=== PATIENT | male | born 1955 | race Caucasian/White ===

== ENCOUNTER 2016-09-06 16:25 | Observation (INO) | payer OTHER ==
[~2016-09-06] VITALS: Ht 167.6 cm; Wt 74.8 kg
[2016-09-06] MEDS ORDERED: IPRATROPIUM 0.5MG/ALBUTEROL 2.5MG INH SOL UD 3ML (DUONEB)(J7620) As Ordered ONE (16:53)
[2016-09-06] MEDS ORDERED: methylPREDNISolone INJ 125 MG/2 ML VIAL (J2930) As Ordered ONE (17:36)
[2016-09-06 17:46] LABS: BASO # 0.1 K/mm3 (0.0-0.2); BASO % 0.7 % (0.0-1.0); EOS # 0.4 K/mm3 (0.0-0.50); LARGE UNSTAINED CELL # 0.2 K/mm3 (0.0-0.4); LARGE UNSTAINED CELL % 1.7 % (0.0-4.0); LYMPH # 1.1 K/mm3 (1.5-4.5); LYMPH % 11.1 % (24.0-44.0); MEAN CORPUSCULAR HEMOGLOBIN 31.5 pg (27.0-33.0); MEAN CORPUSCULAR HGB CONC 33.4 g/dl (32.0-36.5); MEAN CORPUSCULAR VOLUME 94.2 fl (80.0-96.0); MONO # 0.5 K/mm3 (0.0-0.8); NEUTROPHILS # 6.7 K/mm3 (1.8-7.7); NEUTROPHILS % 75.5 % (36.0-66.0); PLATELET COUNT, AUTOMATED 231 k/mm3 (150-450); RED CELL DISTRIBUTION WIDTH 12.9 % (11.5-14.5); WHITE BLOOD COUNT 8.8 K/mm3 (4.0-10.0)
[2016-09-06 18:08] LABS: ANION GAP 10 MEQ/L (8-16); BLOOD UREA NITROGEN 11 MG/DL (7-18); CALCIUM LEVEL 9.7 MG/DL (8.8-10.2); CARBON DIOXIDE LEVEL 31 MEQ/L (21-32); CHLORIDE LEVEL 98 MEQ/L (98-107); CREATININE FOR GFR 0.93 MG/DL (0.70-1.30); GLOMERULAR FILTRATION RATE > 60.0 (>49); GLUCOSE, FASTING 108 MG/DL (80-110); POTASSIUM SERUM 3.2 MEQ/L (3.5-5.1); SODIUM LEVEL 139 MEQ/L (136-145)
--- NOTE | 2016-09-06 18:16 | REP ---
CHEST, PA AND LATERAL: 09/06/2016. Comparison: 05/27/2016, 03/20/2014. Clinical history: Cough with bronchitis symptoms and sinusitis for 2 weeks. Findings: The lung chávez are well inflated without pleural effusion, acute infiltrate, atelectasis or mass. Heart, mediastinal and hilar contours are normal. There are a few cuffed bronchi in the perihilar regions which may reflect reactive airway disease or bronchitis. No effusion or consolidation. The airway and aorta unremarkable. Bones without acute compression deformity of focal lesion. Impression: 1. Minor perihilar changes of bronchitis or reactive airway disease without dense consolidation or effusion. No cardiomegaly or edema. Signed by Carlitos Jensen MD 09/06/2016 08:26 P
[2016-09-06] MEDS ORDERED: AZITHROMYCIN 250 MG TAB As Ordered ONE (19:19)
[2016-09-06] MEDS ORDERED: ALBUTEROL SULFATE 2.5 MG/0.5 ML INH NEB SOLN As Ordered ONE (19:30)
[2016-09-06] MEDS ORDERED: ACETAMINOPHEN TAB 650MG DOSE (2X325MG) PO PRN (20:30)
[2016-09-06] MEDS ORDERED: ONDANSETRON 4MG/2ML VIAL (J2405) IV PRN (20:30)
[2016-09-06] MEDS ORDERED: IPRATROPIUM 0.5MG/ALBUTEROL 2.5MG INH SOL UD 3ML (DUONEB)(J7620) NEB PRN (20:30)
[2016-09-06] MEDS ORDERED: POTASSIUM CHLORIDE 10 MEQ SR TABLET PO ONE (20:30)
[2016-09-06] MEDS ORDERED: VITA10006 PO (20:44)
[2016-09-06] MEDS ORDERED: PROA1AER INH (20:44)
[2016-09-06] MEDS ORDERED: LISI10TA4 PO (20:44)
[2016-09-06] MEDS ORDERED: ASPI1TAB PO (20:44)
[2016-09-06] MEDS ORDERED: SIMV40TA2 PO (20:44)
[2016-09-06] MEDS ORDERED: VITMTA PO (20:44)
[2016-09-06] MEDS ORDERED: HYDR25TAB PO (20:44)
[2016-09-06] MEDS ORDERED: MONTELUKAST 10 MG TAB PO SCH (21:00)
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
[2016-09-06 22:00] VITALS: BP 138/78
[2016-09-06] MEDS: IPRATROPIUM 0.5MG/ALBUTEROL 2.5MG INH SOL UD 3ML (DUONEB)(J7620) NEB SCH (23:37)
[2016-09-06] MEDS: methylPREDNISolone INJ 125 MG/2 ML VIAL (J2930) IV SCH (23:42)
[2016-09-07] MEDS: IPRATROPIUM 0.5MG/ALBUTEROL 2.5MG INH SOL UD 3ML (DUONEB)(J7620) NEB SCH ×2 (04:00→08:11)
[2016-09-07 06:00] VITALS: BP 129/76
[2016-09-07 06:18] LABS: BASO % 0.1 % (0.0-1.0); EOS % 0.6 % (0.0-3.0); LARGE UNSTAINED CELL % 0.2 % (0.0-4.0); LYMPH # 0.4 K/mm3 (1.5-4.5); LYMPH % 5.3 % (24.0-44.0); MEAN CORPUSCULAR HEMOGLOBIN 31.2 pg (27.0-33.0); MEAN CORPUSCULAR HGB CONC 33.9 g/dl (32.0-36.5); MEAN CORPUSCULAR VOLUME 92.2 fl (80.0-96.0); MONO # 0.1 K/mm3 (0.0-0.8); MONO % 1.6 % (0.0-5.0); NEUTROPHILS % 92.2 % (36.0-66.0); PLATELET COUNT, AUTOMATED 191 k/mm3 (150-450); RED CELL DISTRIBUTION WIDTH 12.8 % (11.5-14.5); WHITE BLOOD COUNT 7.5 K/mm3 (4.0-10.0)
[2016-09-07 06:34] LABS: ANION GAP 11 MEQ/L (8-16); BLOOD UREA NITROGEN 13 MG/DL (7-18); CALCIUM LEVEL 8.8 MG/DL (8.8-10.2); CARBON DIOXIDE LEVEL 26 MEQ/L (21-32); CHLORIDE LEVEL 102 MEQ/L (98-107); CHOLESTEROL LEVEL 159 MG/DL (<200); CREATININE FOR GFR 0.86 MG/DL (0.70-1.30); GLOMERULAR FILTRATION RATE > 60.0 (>49); GLUCOSE, FASTING 177 MG/DL (80-110); MAGNESIUM LEVEL 2.4 MG/DL (1.8-2.4); POTASSIUM SERUM 3.5 MEQ/L (3.5-5.1); SODIUM LEVEL 139 MEQ/L (136-145); TRIGLYCERIDES LEVEL 47 MG/DL (<150)
[2016-09-07] MEDS ORDERED: BUDE180INH INH ×2 (08:52→08:53)
[2016-09-07] MEDS ORDERED: PRED10PA PO (08:52)
[2016-09-07] MEDS ORDERED: BUDESONIDE 180MCG INHALER (PULMICORT FLEXHALER) INH SCH (09:00)
[2016-09-07] MEDS ORDERED: ASCORBIC ACID 500 MG TAB PO SCH (09:00)
[2016-09-07] MEDS ORDERED: LISINOPRIL 10 MG TAB PO SCH (09:00)
[2016-09-07] MEDS ORDERED: MULTIVITAMINS/MINERALS THERAP 1 TAB PO SCH (09:00)
[2016-09-07] MEDS ORDERED: hydroCHLOROthiazide 25 MG TAB PO SCH (09:00)
[2016-09-07] MEDS ORDERED: ASPIRIN 81 MG ENTERIC TAB PO SCH (09:00)
[2016-09-07] MEDS ORDERED: ENOXAPARIN 40 MG/0.4 ML SYRINGE (J1650) SC SCH (09:00)
[2016-09-07] MEDS ORDERED: PANTOPRAZOLE 40MG TAB (PROTONIX) PO SCH (09:00)
[2016-09-07] MEDS: methylPREDNISolone INJ 125 MG/2 ML VIAL (J2930) IV SCH (09:59)
--- NOTE | 2016-09-07 20:18 | DSES ---
DATE OF ADMISSION: 09/06/2016 DATE OF DISCHARGE: 09/07/2016 DISCHARGE DIAGNOSIS: Acute asthma exacerbation. SECONDARY DIAGNOSES: Dyslipidemia, gastroesophageal reflux disease, hypertension. HOSPITAL COURSE: Patient is a 60-year-old man who has been battling dyspnea and productive cough for the last 2 1/2 weeks without improvement. He had sick contacts at work. He had been sick recently himself and has just been unable to clear his cough and had worsening shortness of breath associated with it which prompted him to present to the emergency room. Pain was found to be significantly hypoxic. He did receive one dose of azithromycin as well as IV Solu-Medrol, Singulair with desonide which did greatly improve his symptoms. Within the next 24 hours his symptoms did almost completely resolve. SUBJECTIVE: This morning the patient tells me he is feeling great. He feels almost back to normal. He denies any chest pain, shortness of breath, fevers, chills, nausea, vomiting or diarrhea. OBJECTIVE: VITAL SIGNS: Temperature 96.6, pulse 80, respiratory rate 20, blood pressure 129/76, Oxygen sat 98% on room air. I do get him up to ambulate greater than 100 feet and he never drops below 92%. GENERAL: He is a pleasant man sitting on the edge of his bed. He does not appear to be in any acute distress. HEENT: Cranial nerves II through XII are grossly intact. He has moist mucous membranes. No elevation of CVP. CARDIOVASCULAR EXAM: S1, S2, regular. RESPIRATORY EXAM: Clear, no wheeze. Good air movement. Mildly prolonged expiratory phase. ABDOMINAL EXAM: Benign. EXTREMITIES: No clubbing, cyanosis or edema. LABORATORY DATA: WBC 7.5, hemoglobin 3.6, hematocrit 40.1, platelet count 19. Chemistry panel: Sodium 139, potassium 3.5, chloride 102, bicarbonate 26, BUN 13, creatinine 0.8. Respiratory PCR panel was negative. Influenza swab was negative. Blood cultures were negative or pending. Chest x-ray did not reveal any acute consolidation. ASSESSMENT AND PLAN: This is a 60-year-old man with acute asthma exacerbation. PROBLEM: 1. Acute asthma excerebration. Patient is improved. He appears to be at his baseline. He is discharged on his home Ventolin. I will also get him a prednisone taper. Follow up with primary care provider within 7 days. I will give him a new prescription for an inhaled corticoid steroid or Flovent. [facility] He is to be off work until follow up with his primary care provider. His diet is as prior to admission. He is to return to the emergency room if his symptoms worsen. 2. Hypertension. Controlled with hydrochlorothiazide and Lisinopril. 3. Dyslipidemia. Controlled with Simvastatin. MEDICATIONS AT THE TIME OF DISCHARGE: -Flovent two puffs inhaled twice a day -Prednisone 10 mg tablets four for 4 days, three for 4 days, two for 4 days, 1 for 4 days then stop -Pro Air HFA inhaled four times a day as needed for shortness of breath -Vitamin C 1 gram daily as per patient -aspirin 81 mg daily -hydrochlorothiazide 25 mg daily -Lisinopril 10 mg daily -multivitamin one tablet daily -Simvastatin 40 mg at bedtime Greater than 40 minutes spent organizing disposition.
[2016-09-07] MEDS ORDERED: SIMVASTATIN 40 MG TAB PO SCH (21:00)
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
== END 2016-09-07 11:02 | disposition home or self-care (01) ==
LOC: M ED 16:25 → M ED INP 20:30 → M MSPAV 21:45
PROVIDERS: ADMIT General Practice; ATTEND Internal Medicine
DX: J45.901 Unspecified asthma with (acute) exacerbation (principal); E78.5 Hyperlipidemia, unspecified; K21.9 Gastro-esophageal reflux disease without esophagitis; I10 Essential (primary) hypertension; Z79.82 Long term (current) use of aspirin; Z79.51 Long term (current) use of inhaled steroids; Z79.899 Other long term (current) drug therapy; Z87.891 Personal history of nicotine dependence
CPT/HCPCS: 36415; 71020; 80048; 80061; 83735; 85025; 87040; 87486; 87581; 87633; 87798; 87804; 94640; 96374; 96376; 99285; J2930

== ENCOUNTER 2018-01-10 02:52 | Emergency (ER) | payer OTHER ==
[2018-01-10] MEDS: methylPREDNISolone INJ 125 MG/2 ML VIAL (J2930) IV (03:39)
[2018-01-10] MEDS: IPRATROPIUM 0.5MG/ALBUTEROL 2.5MG INH SOL UD 3ML (DUONEB)(J7620) NEB ×3 (03:50→03:51)
[2018-01-10 04:24] LABS: ABG BASE EXCESS 2.3 (-2.0-2.0); ABG HCO3 26.2 MEQ/L (22.0-26.0); ABG O2 SATURATION 93.2 % (95.0-99.0); ABG PARTIAL PRESSURE CO2 38.3 mmHg (35.0-45.0); ABG PARTIAL PRESSURE O2 63.9 mmHg (75.0-100.0); ABG STANDARD HCO3 26.4 MEQ/L (22.0-26.0); ABG TOTAL CO2 27.4 MEQ/L (23.0-31.0); ABG pH (ARTERIAL) 7.453 UNITS (7.350-7.450); ANION GAP 10 MEQ/L (8-16); BLOOD UREA NITROGEN 17 MG/DL (7-18); CALCIUM LEVEL 8.9 MG/DL (8.8-10.2); CARBON DIOXIDE LEVEL 29 MEQ/L (21-32); CHLORIDE LEVEL 105 MEQ/L (98-107); GLOMERULAR FILTRATION RATE > 60.0 (>49); GLUCOSE, FASTING 111 MG/DL (70-100); POTASSIUM SERUM 3.5 MEQ/L (3.5-5.1); SODIUM LEVEL 144 MEQ/L (136-145)
[2018-01-10 04:41] LABS: BASO # 0.1 10^3/uL (0.0-0.2); BASO % 1.2 % (0.0-1.0); EOS # 0.9 10^3/uL (0.0-0.50); EOS % 13.5 % (0.0-3.0); HEMATOCRIT 42.4 % (42.0-52.0); HEMOGLOBIN 14.7 g/dl (13.5-17.5); IMMATURE GRANULOCYTE % 0.3 % (0-3.0); LYMPH # 0.9 10^3/uL (1.5-4.5); LYMPH % 13.5 % (24.0-44.0); MEAN CORPUSCULAR HEMOGLOBIN 30.8 pg (27.0-33.0); MEAN CORPUSCULAR HGB CONC 34.7 g/dl (32.0-36.5); MEAN CORPUSCULAR VOLUME 88.7 fl (80.0-96.0); MONO # 0.6 10^3/uL (0.0-0.8); MONO % 9.2 % (0.0-5.0); NEUTROPHILS # 4.1 10^3/uL (1.8-7.7); NEUTROPHILS % 62.3 % (36.0-66.0); PLATELET COUNT, AUTOMATED 188 10^3/uL (150-450); RED BLOOD COUNT 4.78 10^6/uL (4.30-6.10); RED CELL DISTRIBUTION WIDTH 12.5 % (11.5-14.5); WHITE BLOOD COUNT 6.5 10^3/uL (4.0-10.0)
[2018-01-10] MEDS: AZITHROMYCIN 250 MG TAB PO (06:00)
[2018-01-10] MEDS: ALBUTEROL 90 MCG/ACT 8GM HFA INHALER INH (06:00)
== END 2018-01-10 06:12 | disposition home or self-care (01) ==
LOC: M ED 02:52
DX: J42 Unspecified chronic bronchitis (principal); J44.9 Chronic obstructive pulmonary disease, unspecified; J30.81 Allergic rhinitis due to animal (cat) (dog) hair and dander; Z87.891 Personal history of nicotine dependence; Z79.82 Long term (current) use of aspirin; Z79.899 Other long term (current) drug therapy
CPT/HCPCS: J2930

== ENCOUNTER 2019-06-17 16:41 | Emergency (ER) | payer MEDICARE, OTHER ==
[~2019-06-17] VITALS: Ht 167.6 cm; Wt 75.0 kg
[~2019-06-17 16:41] MED LIST: ASPI81TA26 PO; AZIT-12 PO; BUDE180INH INH; DICL75TA PO; FLUT1LOT EX; HYDR25TAB PO; LISI10TA4 PO; PRED10PA PO; PRED20TA PO; PRIL20CA9 PO; PROAAER10 INH; SIMV40TA20 PO; TRAM50TA2 PO; VITA10006 PO; VITMTA PO
[2019-06-17 17:27] LABS: BASO % 0.6 % (0.0-1.0); EOS # 0.2 10^3/uL (0.0-0.5); EOS % 4.4 % (0.0-3.0); HEMATOCRIT 42.4 % (42.0-52.0); HEMOGLOBIN 14.2 g/dl (13.5-17.5); LYMPH # 0.8 10^3/uL (1.5-5.0); MEAN CORPUSCULAR HGB CONC 33.5 g/dl (32.0-36.5); MEAN CORPUSCULAR VOLUME 92.6 fl (80.0-96.0); MONO # 0.6 10^3/uL (0.0-0.8); NEUTROPHILS # 3.5 10^3/uL (1.5-8.5); NEUTROPHILS % 66.8 % (36.0-66.0); PLATELET COUNT, AUTOMATED 190 10^3/uL (150-450); RED BLOOD COUNT 4.58 10^6/uL (4.30-6.10); WHITE BLOOD COUNT 5.3 10^3/uL (4.0-10.0)
[2019-06-17 17:50] LABS: ALBUMIN 4.2 GM/DL (3.2-5.2); ALT/SGPT 82 U/L (12-78); BILIRUBIN,DIRECT 0.2 MG/DL (0.0-0.2); BILIRUBIN,TOTAL 0.4 MG/DL (0.2-1.0); BLOOD UREA NITROGEN 18 MG/DL (7-18); CALCIUM LEVEL 8.8 MG/DL (8.8-10.2); CARBON DIOXIDE LEVEL 32 MEQ/L (21-32); CHLORIDE LEVEL 103 MEQ/L (98-107); CREATININE FOR GFR 0.92 MG/DL (0.70-1.30); GLOMERULAR FILTRATION RATE > 60.0 (>49); GLUCOSE, FASTING 84 MG/DL (70-100); LIPASE 176 U/L (73-393); SODIUM LEVEL 141 MEQ/L (136-145); TOTAL PROTEIN 7.4 GM/DL (6.4-8.2)
[2019-06-17] MEDS ORDERED: LISI10TA4 PO (18:57)
[2019-06-17] MEDS ORDERED: DICL50TA2 PO (19:00)
[2019-06-17] MEDS ORDERED: ATOR80TA59 PO (19:00)
[2019-06-17] MEDS ORDERED: SING10TA32 PO (19:01)
[2019-06-17] MEDS ORDERED: ARTIDRO2 OS (19:02)
[2019-06-17] MEDS ORDERED: TIMO0.5S29 OD (19:03)
[2019-06-17] MEDS ORDERED: KETOROLAC 30 MG/ML VIAL (J1885) IV ONE (19:45)
--- NOTE | 2019-06-17 20:54 | REPVR ---
PROCEDURE INFORMATION: Exam: US Scrotum Exam date and time: 06/17/2019 8:39 PM Age: 63 years old Clinical history: Groin pain; Additional info: Left testicular/groin pain x 3 days TECHNIQUE: Imaging protocol: Real-time ultrasound of the scrotum and contents with color Doppler and image documentation. COMPARISON: No relevant prior studies available. FINDINGS: Right testicle: Right testis measures 3.7 x 2.6 x 3 cm. Arterial and venous flow are detected. No focal mass. Left testicle: Left testis measures 4.1 x 2.7 x 2.7 cm. Arterial and venous flow are detected. The no focal mass. Epididymides: There is a 3 mm anechoic cyst in the head of the right epididymis. There is an epididymis appendix. The epididymis is otherwise normal in appearance. The right epididymis is unremarkable. Scrotum: There are bilateral hydroceles. IMPRESSION: 1. Normal appearance of the testes without evidence of testicular torsion. No significant epididymal abnormality is identified. 2. Bilateral hydroceles. Electronically signed by: Willow Soto On 06/17/2019 20:54:25 PM
[2019-06-17] MEDS: GASTROGRAFIN SOLUTION 30ML PO SCH ×2 (21:38→22:08)
[2019-06-17] MEDS ORDERED: ISOVUE-370 76% 100ML VIAL (Q9967) As Ordered ONE (22:55)
--- NOTE | 2019-06-17 23:59 | REPVR ---
PROCEDURE INFORMATION: Exam: CT Abdomen And Pelvis With Contrast Exam date and time: 06/17/2019 11:02 PM Age: 63 years old Clinical history: Abdominal pain; Additional info: Llq/groin pain, radiating to left testicle, neg scrotal US TECHNIQUE: Imaging protocol: Computed tomography of the abdomen and pelvis with intravenous contrast. Radiation optimization: All CT scans at this facility use at least one of these dose optimization techniques: automated exposure control; mA and/or kV adjustment per patient size (includes targeted exams where dose is matched to clinical indication); or iterative reconstruction. Contrast material: ISOVUE 370; Contrast volume: 100 ml; Contrast route: IV; COMPARISON: No relevant prior studies available. FINDINGS: Liver: Normal. No mass. Gallbladder and bile ducts: Normal. No calcified stones. No ductal dilation. Pancreas: Normal. No ductal dilation. Spleen: Normal. No splenomegaly. Adrenals: Normal. No mass. Kidneys and ureters: Normal. No hydronephrosis. Stomach and bowel: Mo fundoplication. Appendix: No evidence of appendicitis. Intraperitoneal space: Unremarkable. No free air. No significant fluid collection. Vasculature: Unremarkable. No abdominal aortic aneurysm. Lymph nodes: Unremarkable. No enlarged lymph nodes. Bladder: Unremarkable as visualized. Reproductive: Unremarkable as visualized. Bones/joints: Mild/moderate lumbar spondylosis. Soft tissues: Small left inguinal hernia containing fat. IMPRESSION: Small left inguinal hernia containing fat. Electronically signed by: Palomo Menjivar On 06/17/2019 23:58:51 PM
[2019-06-18 00:19] VITALS: BP 167/97
[2019-06-20 00:07] LABS: PSA TOTAL 1.3 ng/mL (0.0-4.0)
== END 2019-06-18 00:23 | disposition home or self-care (01) ==
LOC: M ED 16:41
DX: K40.90 Unilateral inguinal hernia, without obstruction or gangrene, not specified as recurrent (principal); N43.3 Hydrocele, unspecified; N50.812 Left testicular pain; Z79.82 Long term (current) use of aspirin; Z79.899 Other long term (current) drug therapy
CPT/HCPCS: 36415; 74177; 76870; 80048; 80076; 81001; 83690; 84154; 85025; 96374; 99284; J1885; Q9963; Q9967

== ENCOUNTER → 2019-07-17 | Outpatient (CLI) | payer MEDICARE, OTHER ==
[~2019-07-17] MED LIST changes: +ALLERGY SHOT; +ARTIDRO2 OS; +ATOR80TA59 PO; +BRIM2OPD OU; +DICL1GEL3 TOP; +DICL50TA2 PO; +FLUT15.820; +LORA-674 PO; +OMEP-218 PO; +ROSU40TA4 PO; +SING10TA32 PO; +TIMO0.5S29 OD; +VITA500T PO
--- NOTE | 2019-07-17 20:43 | ECGEPIP ---
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
== END ==
LOC: M EKG 11:50
PROVIDERS: ATTEND Surgery
DX: Z01.818 Encounter for other preprocedural examination (principal); R00.1 Bradycardia, unspecified

== ENCOUNTER 2019-07-23 05:52 | Day surgery (SDC) | payer MEDICARE, OTHER ==
[~2019-07-23] VITALS: Ht 167.6 cm; Wt 86.2 kg
[2019-07-23] MEDS ORDERED: LR 1,000 ML IV SCH ×2 (06:00→10:00)
[2019-07-23] MEDS ORDERED: ceFAZolin SOD 2 GM in IV 1 EA IV SCH (06:00)
[2019-07-23] MEDS ORDERED: BUPIVACAINE HCL 0.25% 10 ML VIAL As Ordered ONE (07:09)
[2019-07-23] MEDS ORDERED: BUPIVACAINE HCL 0.25% 30 ML VIAL As Ordered ONE ×2 (07:10→07:55)
[2019-07-23] MEDS ORDERED: LIDOCAINE 1% SDV INJ 30 ML VIAL As Ordered ONE ×2 (07:10→07:55)
[2019-07-23] MEDS ORDERED: BUPIVACAINE LIPOSOME/PF 1.3% 20ML VIAL (13.3MG/ML)(EXPAREL)(C9290 PER1MG) As Ordered ONE (07:10)
[2019-07-23] MEDS ORDERED: PROPOFOL 200 MG/20 ML VIAL As Ordered ONE (07:14)
[2019-07-23] MEDS ORDERED: dexameTHASONE 4 MG/ML 1ML VIAL (J1100) As Ordered ONE (07:14)
[2019-07-23] MEDS ORDERED: ACETAMINOPHEN 1000MG 100ML IV BTL (OFIRMEV) (J0131 PER 10MG) As Ordered ONE (07:14)
[2019-07-23] MEDS ORDERED: MIDAZOLAM INJ 2 MG/2 ML VIAL (J2250) As Ordered ONE (07:14)
[2019-07-23] MEDS ORDERED: ONDANSETRON 4MG/2ML VIAL (J2405) As Ordered ONE (07:14)
[2019-07-23] MEDS ORDERED: ROCURONIUM BROMIDE 50 MG/5 ML VIAL As Ordered ONE (07:14)
[2019-07-23] MEDS ORDERED: LIDOCAINE 2% INJ 100 MG/5 ML SDV (FOR ANES.) As Ordered ONE (07:14)
[2019-07-23] MEDS ORDERED: KETOROLAC 60 MG/2 ML VIAL (J1885) As Ordered ONE (07:14)
[2019-07-23] MEDS ORDERED: SUGAMMADEX SODIUM 500 MG/5 ML VIAL (BRIDION) As Ordered ONE (07:14)
[2019-07-23] MEDS ORDERED: fentaNYL 100 MCG/2 ML INJECTION (J3010) As Ordered ONE (07:16)
[2019-07-23] MEDS ORDERED: MORPHINE 2 MG/ML 1ML VIAL (J2270) IV PRN (10:00)
[2019-07-23] MEDS ORDERED: ONDANSETRON 4MG/2ML VIAL (J2405) IV PRN ×2 (10:00→11:00)
[2019-07-23] MEDS ORDERED: fentaNYL 100 MCG/2 ML INJECTION (J3010) IV PRN (10:00)
[2019-07-23] MEDS ORDERED: oxyCODONE 5MG TAB As Ordered ONE (10:06)
[2019-07-23] MEDS ORDERED: oxyCODONE 5MG TAB PO ONE (10:30)
[2019-07-23] MEDS ORDERED: PERCOCET 5MG/325MG TAB PO PRN (11:00)
[2019-07-23 11:50] VITALS: BP 125/73
[2019-07-23] MEDS ORDERED: KETOROLAC 30 MG/ML VIAL (J1885) IV PRN (15:00)
--- NOTE | 2019-07-25 11:20 | ROOPDOC ---
[facility] Report Of Operation Report of Operation DATE OF PROCEDURE: 07/23/19 PREPROCEDURE DIAGNOSES: left inguinal hernia. POSTPROCEDURE DIAGNOSES: small indirect left inguinal hernia, moderate sized cord lipoma. PROCEDURE: Robotic-assisted laparoscopic left inguinal hernia repair (transabdominal preperitoneal repair ARTHUR) 15 x 10 cm Procrit mesh was placed. SURGEON: Javier Buck MD LIFE SCIENCE RESEARCH ASSISTANT: ANESTHESIA: General Anesthesia. ESTIMATED BLOOD LOSS: Approximately 10 mL. COMPLICATIONS: none. PROCEDURE NOTE: Patient is complaining of left groin pain and clinically has a small reducible inguinal hernia that ultrasound is noted to be fat containing. Intraoperatively he has a small peritoneal defect leading to the internal ring with only minimal invagination of the peritoneum/hernia sac. He had a moderate sized roughly about 4 cm bulky cord lipoma inside the inguinal canal that was reduced and partially excised. DESCRIPTION OF PROCEDURE: Patient received 2 g of Ancef IV preoperatively for wound prophylaxis. He was allowed to urinate prior to bringing him into the operating room and no Lund catheter is placed. Patient was brought to the operating room, placed supine on the operating table. Compression boots placed in both lower extremities for DVT prophylaxis. After adequate general anesthesia started His abdomen and groin/pelvic area then prepped and draped in the usual sterile fashion. We paused for a surgical timeout using both pre-incision safety checklist to verify correct patient, procedure site and additional clinical information prior to beginning the procedure Entry to the abdomen done through a small incision about 2 cm above the umbilicus. A Veress needle is inserted on a controlled fashion. CO2 insufflation started to pressure 15 mmHg. Using the same incision an 8 mm robotic optical trocar was then placed under direct vision of laparoscope. The insertion site was inspected for injury and none was found. The insertion point is noted to be surrounded by a omental adhesions with the omentum coming to the anterior abdominal wall extending to the right lower lateral abdominal wall probably from his previous appendectomy/appendicitis. There were no obvious bleeding or bowel injury. I placed a 5 mm port at the left upper quadrant area to visualize the supraumbilical insertion site. An 8 mm robotic trocar is placed on the left sided abdominal wall along the same line as the camera trocar. Using the 2 left trochars and the omental adhesions along the anterior abdominal wall was sharply divided with laparoscopic christiano connected to a monopolar cautery and the omentum and bowels underneath referring examined to make sure there is no injury. Once satisfied a third 8 mm robotic port was placed at the right lateral abdominal wall. Patient was then positioned on a slight Trendelenburg position with the symptomatic (left) side tilted upwards for adequate view of the hernia defect. I note a small peritoneal opening along the left internal ring. No obvious hernias noted at the right side. The da Farhana robot tower was then positioned and the trochars docked onto the robot. I then unscrubbed and took control of the camera and the laparoscopic instruments at the surgeon's console. A forced bipolar forceps with bipolar cautery on my left arm and A luis-cut laparoscopic scissor with unipolar cautery in my right arm was used. Operative Findings: Small peritoneal defect at the left internal ring is noted. No defects noted on the right side. The peritoneum was opened up about 6-7 cm above the internal ring starting at the medial umbilical ligament going i laterally towards the level of the anterior superior iliac spine. Dissection was maintained along the preperitoneal plane. The space of Retzius was bluntly exposed pubic tubercle and this was dissected medially to the symphysis pubis. The dissection was continued inferiorly 2 cm inferior to the pubic tubercle. No direct hernia defect is noted. There is no hernia noted at the femoral space. Dissection was then continued laterally bringing down the small tongue of peritoneum invaginating to the internal ring and the space of Bogros laterally then developed to the level of the anterior superior iliac spine to create adequate space for a large mesh overlap. The inguinal canal was then examined and a moderate size bulky well- formed cord lipoma was pulled out in its entirety. As it was bulky I divided much of the bulk of the cord lipoma to be retrieved later. The dissection space was inspected for adequate hemostasis as well as for adequacy of this mesh placement and once satisfied I obtained a 15 x 10 Progrip mesh. This was folded 4 times and introduced into the abdomen by my certified anesthesiologist assistant. This was unfolded centered to the internal ring. The medial edge of the mesh reaching to the level of the symphysis pubis and the inferior edge of the mesh reaching below the pubic tubercle covering both the direct space and femoral space. The upper peritoneal flap was further developed to accommodate the mesh to lay flat on the abdominal wall. Once the mesh is fully infolded, the peritoneal flap was tested by lifting this up and I was satisfied that this was not folding the mesh upwards. I then used a 20V LOC suture to close the peritoneal flap starting laterally going medially. The peritoneal flap was inspected for holes and none was found. The cord lipoma that was excised was retrieved in pieces by my certified anesthesiologist assistant. I then surveyed the abdomen and pelvis for any signs of injury. Once satisfied I scrubbed back in. The instruments were removed. The abdomen was deflated. All ports were removed. The skin incisions were closed with 4-0 Monocryl in subcuticular fashion. The incisions were covered with Dermabond. The port sites were again infiltrated with local anesthesia. An ilioinguinal nerve block was also performed. Patient was promptly awakened, extubated and brought to the recovery room stable Count of sponges and instruments were verified correct. JAVIER BUCK MD Jul 25, 2019 11:20
== END 2019-07-23 12:05 | disposition home or self-care (01) ==
LOC: M SDC 05:52
PROVIDERS: ATTEND Surgery
DX: K40.90 Unilateral inguinal hernia, without obstruction or gangrene, not specified as recurrent (principal); D17.6 Benign lipomatous neoplasm of spermatic cord; I10 Essential (primary) hypertension; E78.49 Other hyperlipidemia; K21.9 Gastro-esophageal reflux disease without esophagitis; Z87.891 Personal history of nicotine dependence; J44.9 Chronic obstructive pulmonary disease, unspecified; Z79.82 Long term (current) use of aspirin; Z79.899 Other long term (current) drug therapy
CPT/HCPCS: 49650; 88304; C1781; J0131; J0690; J1100; J1885; J2250; J2405; J3010

== ENCOUNTER 2020-04-07 02:28 | Emergency (ER) | payer MEDICARE, OTHER ==
[~2020-04-07] VITALS: Ht 167.6 cm; Wt 84.7 kg
[~2020-04-07 02:28] MED LIST changes: -ARTIDRO2 OS; +POLYOPD OS; +VITA-243 PO; -VITA500T PO
[2020-04-07] MEDS ORDERED: EPIN0.3I11 (02:44)
[2020-04-07] MEDS ORDERED: TOBROPO (02:44)
[2020-04-07] MEDS ORDERED: PROAAER10 (02:44)
[2020-04-07] MEDS ORDERED: LISI-538 (02:44)
--- NOTE | 2020-04-07 03:53 | REPVR ---
PROCEDURE INFORMATION: Exam: XR Right Shoulder Exam date and time: 04/07/2020 3:29 AM Age: 64 years old Clinical indication: Other: Non traumatic; Additional info: Nontraumatic pain TECHNIQUE: Imaging protocol: XR Right shoulder. Views: 2 or more views. Transscapular view was also included. COMPARISON: No relevant prior studies available. FINDINGS: Bones/joints: No acute fracture. No dislocation. Mild widening of the acromioclavicular joint measuring 12 mm. There is no superior or inferior displacement of the distal clavicle. Soft tissues: So the ft tissues: Calcification over the greater tuberosity of the right humerus consistent with calcific tendinitis. IMPRESSION: 1. No acute fracture. 2. Mild widening of the acromioclavicular joint. Possible grade 2 AC joint injury. Electronically signed by: Jennifer Harris On 04/07/2020 03:53:12 AM
[2020-04-07] MEDS ORDERED: NORCO 5/325MG TABLET (BULK FOR ED) PO ONE (04:15)
[2020-04-07 04:20] VITALS: BP 132/56
== END 2020-04-07 04:22 | disposition home or self-care (01) ==
LOC: M ED 02:28
DX: S46.911A Strain of unspecified muscle, fascia and tendon at shoulder and upper arm level, right arm, initial encounter (principal); X58.XXXA Exposure to other specified factors, initial encounter; Y92.9 Unspecified place or not applicable; Y99.9 Unspecified external cause status; M65.221 Calcific tendinitis, right upper arm; I10 Essential (primary) hypertension; J45.909 Unspecified asthma, uncomplicated; E78.5 Hyperlipidemia, unspecified; Z79.51 Long term (current) use of inhaled steroids; Z79.899 Other long term (current) drug therapy

== ENCOUNTER → 2020-11-23 | Outpatient (CLI) | payer OTHER ==
[~2020-11-23] MED LIST changes: +EPIN0.3I11; +HYDR-3490 PO; -HYDR25TAB PO; +LISI10TA22 PO; -LISI10TA4 PO; +LISI20TA33; +PROAAER10; +TOBROPO
--- NOTE | 2020-11-25 00:38 | ECWPNPC ---
PATIENT NAME: MARLA RICO : 1955 GENDER: MALE VISIT DATE: 11/23/2020 DISCHARGE DATE: 11/23/20926 VISIT LOCKED DATE TIME: PHYSICIAN: KO MARIA RESOURCE: KO MARIA REASON FOR APPOINTMENT 1. LOW BACK PAIN HISTORY OF PRESENT ILLNESS GENERAL: HPI 65-YEAR-OLD MALE IN FOR INITIAL PAIN CONSULT REGARDING LOW BACK PAIN. PATIENT ADMITS THE PAIN HAS BEEN PRESENT FOR SEVERAL YEARS. HE DENIES INJECTIONS IN THE PAST. HE RATES HIS PAIN CURRENTLY AT A 7 OUT OF 10 AND DESCRIBES IT CONTINUOUS, AND THROBBING.. - -. FALL RISK SCREENING: SCREENING : NO FALLS REPORTED IN THE LAST YEAR. PAIN SCREENING: PATIENT HAS A COMPLAINT OF ACUTE OR CHRONIC PAIN :YES LOCATION OF PAIN:LOW BACK INTENSITY OF PAIN (SCALE OF 1 TO 10):7 WHAT DOES YOUR PAIN FEEL LIKE:CONTINOUS, THROBBING DURATION:CONTINOUS, AWAKENS FROM SLEEP PAIN IS INCREASED BY:ACTIVITIES, PROLONGED STANDING, OTHERS WALKING PAIN IS DECREASED BY:USE OF PAIN MEDICATIONS, SITTING, OTHERS BIOWAVE, PHYSICAL THERAPY NURSING NOTE: - -. PAIN CENTER INTAKE QUESTIONS: DO YOU HAVE A HISTORY OF MRSA? :NO DO YOU TAKE A BLOOD THINNERS? :NO ASPIRIN DO YOU HAVE ANY BLEEDING DISORDERS? :NO ANY NEW NUMBNESS OR WEAKNESS IN YOUR LEGS OR ARMS? :YES INTERMITTENT LEFT LEG WEAKNESS AND NUMBNESS ANY PACEMAKER,DEFIBRILLATOR, OR DORSAL COLUMN STIMULATOR? :NO DO YOU HAVE ANY RASHES OR OPEN SORES? :NO ARE YOU ALLERGIC TO IV DYE? :NO ARE YOU DIABETIC? :YES BORDERLINE -DIET CONTROLLED ANY NEW PROBLEMS WITH YOUR MEDICATIONS? :NO HAVE YOU RECEIVED A VACCINE IN THE PAST 30 DAYS? :NO DO YOU PLAN TO RECEIVE A VACCINE IN THE NEXT 21 DAYS? :NO DO YOU NEED ANY PRESCRIPTION? :NO DO YOU TAKE ANY IMMUNOSUPPRESSIVE MEDICATIONS? :NO IS THERE A CHANCE YOU COULD BE ? :NO ARE YOU BREAST FEEDING? :NO CURRENT MEDICATIONS TAKING ARTIFICIAL TEARS 1.4 % SOLUTION DIRECTED OPHTHALMIC FOUR TIMES DAILY TAKING OXYCODONE-ACETAMINOPHEN 5-325 MG TABLET 1 TABLET NEEDED ORALLY EVERY 6 HRS, NOTES: ONLY USES WHEN THE PAIN IS UNBEARABLE TAKING ROSUVASTATIN CALCIUM 40 MG TABLET 1 TABLET ORALLY ONCE A DAY TAKING MULTIVITAMIN - TABLET 1 TABLET ORALLY TWICE DAILY TAKING LORATADINE 10 MG TABLET 1 TABLET ORALLY ONCE A DAY TAKING FLUTICASONE PROPIONATE HFA 110 MCG/ACT AEROSOL 1 PUFF INHALATION TWICE A DAY TAKING ASCORBIC ACID 500 MG TABLET CHEWABLE 1 TABLET ORALLY TWICE DAILY TAKING VENTOLIN HFA 108 (90 BASE) MCG/ACT AEROSOL SOLUTION 1 PUFF NEEDED INHALATION EVERY 4 HRS TAKING MONTELUKAST SODIUM 10 MG TABLET 1 TABLET ORALLY ONCE A DAY TAKING ASPIR-81 TAKING HYDROCHLOROTHIAZIDE 25 MG TABLET 1 TABLET IN THE MORNING ORALLY ONCE A DAY TAKING LISINOPRIL 20 MG TABLET 1 TABLET ORALLY ONCE A DAY TAKING TRAMADOL HCL 50 MG TABLET 1 TABLET NEEDED ORALLY ONCE A DAY TAKING DICLOFENAC SOD-OCCLUSIVE DRESS _ THERAPY PACK DIRECTED GEL EXTERNALLY DIRECTED MEDICATION LIST REVIEWED AND RECONCILED WITH THE PATIENT PAST MEDICAL HISTORY HTN ALLERGIES ENVIRONMENTAL: CONGESTION - ALLERGY TIMOLOL HEMIHYDRATE: ALLERGY CATS: CONGESTION - ALLERGY SURGICAL HISTORY FRACTURED BILATERAL ARMS(WRISTS, RADIUS'S, ELBOWS) 1968 APPENDECTOMY 1970 WISDOM TEETH REMOVAL 1972 TONSILLECTOMY 1973 RIGHT FOOT RECONSTRUCTION WITH FIVE PINS PLACED 1979 FRACTURED RIGHT WRIST 1989 HEMMORRHOIDS REMOVED 1991 NODULES REMOVED FROM REAR OF HEAD AND UPPER LIP 1991 FRAGMENTS REMOVED OF CUSTIC ORAL LESION 1994 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 1 SON(S) - HEALTHY. MOTHER HAD LYMPHATIC LEUKEMIA AND SISTER HAD BREAST CANCER. SOCIAL HISTORY GENERAL: TOBACCO USE ARE YOU A:FORMER SMOKER HOW LONG HAS IT BEEN SINCE YOU LAST SMOKED?> 10 YEARS LATEX QUESTIONNAIRE LATEX ALLERGY : HAVE YOU EVER DEVELOPED ANY TYPE OF REACTION AFTER HANDLING LATEX PRODUCTS SUCH RUBBER GLOVES, CONDOMS, DIAPHRAGMS, BALLOONS, SOCKS, OR UNDERWEAR?NO LATEX ALLERGY : HAVE YOU EVER DEVELOPED ANY TYPE OF REACTION DURING OR AFTER DENTAL APPOINTMENT, VAGINAL/RECTAL EXAMINATION, SURGICAL PROCEDURE, OR ANY OTHER EXPOSURE?NO LATEX RISK : HAVE YOU EVER HAD ANY DIFFICULTY BREATHING OR HIVES AFTER EATING OR HANDLING ANY FRUITS, OR VEGETABLES; SUCH KIWI, BANANAS, STONE FRUITS, OR CHESTNUTSNO LATEX RISK : DO YOU HAVE A PREVIOUS PERSONAL HISTORY OF MORE THAN NINE SURGERIES, SPINA BIFIDA, OR REPEATED CATHERIZATIONS? YES - PLEASE INDICATE : > 9 SURGERIES LATEX RISK : ARE YOU FREQUENTLY EXPOSED TO LATEX PRODUCTS IN YOUR OCCUPATION?NO DATE ASKED : 11/23/2020 ALCOHOL USE: RARELY. RECREATIONAL DRUG USE DRUG USE?NO LANGUAGE LANGUAGES SPOKEN:SERBIAN EDUCATION LEVEL OF EDUCATION:COLLEGE LEARNING BARRIERS / SPECIAL NEEDS BARRIERS TO LEARNING?NO HEARING IMPAIRED?YES TINNITUS :HEARING AIDES VISION IMPAIRED?YES :CORRECTIVE LENSES COGNITIVELY IMPAIRED?NO READINESS TO LEARN?YES LEARNING PREFERENCES?NO LEARNING CAPABILITIES PRESENT?YES EMOTIONAL BARRIERS?NO SPECIAL DEVICES?YES :CANE, OTHER ORTHOTIC INSERT FOR RIGHT FOOT. 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 CHILLS NO . WEIGHT CHANGE OF UNKNOWN REASONS NO . MUSCULOSKELETAL: ANY UNUSUAL JOINT PAIN OR SWELLING NOT MENTIONED NO . SYSTEMIC LUPUS NO . ANY NEUROMUSCULAR DISORDER NOT MENTIONED NO . LYME DISEASE NO . GASTROENTEROLOGY: ANY NEW CHANGE IN BOWEL CONTROL? NO . HISTORY OF LIVER DISORDER NOT MENTIONED NO . HISTORY OF UNUSUAL ABDOMINAL PAIN OR CRAMPING NOT MENTIONED NO . NO CONSTIPATION. GENITOURINARY: ANY NEW CHANGE IN BLADDER CONTROL? NO . ANY RENAL/KIDNEY CONDITON NOT MENTIONED NO . NEUROLOGY: HISTORY OF TBI NOT MENTIONED NO . OTHER NEW NUMBNESS OR PAIN PATTERNS NOT MENTIONED NO . NEW ONSET DIZZINESS OR NEUROLOGICAL CHANGES NOT MENTIONED NO . HISTORY OF SEVERE HEADACHES NOT MENTIONED NO . HISTORY OF STROKE OR NEUROLOGICAL DISORDER NOT MENTIONED NO . CARDIOLOGY: HEART SURGERY NO . CONGESTIVE HEART FAILURE/FLUID OVERLOAD NOT MENTIONED NO . HISTORY OF CHEST PAIN,IRREGULAR HEART BEAT NOT MENTIONED NO . RESPIRATORY: SHORTNESS OF BREATH ON EXERTION, WHEEZES, UNUSUAL COUGH NOT MENTIONED NO . ENDOCRINOLOGY: ADRENAL GLAND OR THYROID DISORDERS NOT MENTIONED NO . UNUSUAL URINATION, DIZZINESS OR LETHARGY NOT MENTIONED NO . VITAL SIGNS WT 188.6 LBS, HT 66 IN, BMI 30.44 INDEX, BP 163/78 MM HG, HR 68 /MIN, RR 18 /MIN, TEMP 97.3 F, OXYGEN SAT % 94%, SAFE IN ENV? (Y/N) YES, NA INITIALS AW 0830, REVIEWED BY: MARYJANE SANTA MA. EXAMINATION GENERAL EXAMINATION: GENERALNO ACUTE DISTRESS, WELL NOURISHED AND HYDRATED. PSYCHAPPROPRIATE MOOD AND AFFECT . LUNGS:CLEAR TO AUSCULTATION BILATERALLY, NO WHEEZES, RHONCHI, RALES. HEART:NO MURMURS, REGULAR RATE AND RHYTHM. BACK:POINT TENDER ALONG LUMBAR SPINE, SURROUNDING SKIN SHOWS NO ERYTHEMA, ECCHYMOSIS, INCREASED WARMTH, AND/OR SKIN ERUPTIONS NOTED. POSITIVE MODIFIED SLR LEFT SIDE. MUSCULOSKELETAL:NOTABLE WEAKNESS OF THE LEFT LOWER EXTREMITY, RIGHT LOWER EXTREMITY WITHIN NORMAL LIMITS. ASSESSMENTS INTERVERTEBRAL DISC DISORDER WITH RADICULOPATHY OF LUMBOSACRAL REGION - M51.17 (PRIMARY) TREATMENT INTERVERTEBRAL DISC DISORDER WITH RADICULOPATHY OF LUMBOSACRAL REGION SALINE LOCK (ORDERED FOR 12/01/2020) MEDICATION: NORCO TABLET 5MG/325MG ORALLY (HYDROCODONE/ACETAMINOPHEN) (ORDERED FOR 12/01/2020) MEDICATION: VALIUM TAB 5MG ORALLY (DIAZEPAM) (ORDERED FOR 12/01/2020) NOTES: 65-YEAR-OLD MALE IN FOR INITIAL PAIN CONSULT REGARDING LOW BACK PAIN. GIVEN PRESENTING SYMPTOMS AND RESULTS OF PHYSICAL EXAMINATION RECOMMENDED LUMBAR EPIDURAL STEROID INJECTIONS WITH POSTPROCEDURAL FOLLOW-UP. PATIENT HAS EXPRESSED UNDERSTANDING OF AND WAS IN AGREEMENT WITH TREATMENT PLAN. GIVEN TIME TO ASK QUESTIONS AND EXPRESS CONCERNS. CLINICAL NOTES: PREPROCEDURE AND PROCEDURE INFORMATION PRINTED AND PROVIDED TO PATIENT. PATIENT VERBALIZED AN UNDERSTANDING. NAINA SANTA MA. PROCEDURE CODES FA211 ESTABILISHED PATIENT [facility] CHARGE DISPOSITION & COMMUNICATION FOLLOW UP POST PROCEDURE (REASON: LUMBAR EPIDURAL STEROID INJECTION ) ELECTRONICALLY SIGNED BY AVIS ROBBINS ON 11/24/2020 AT 08:26 AM EDT DISCLAIMER : THIS IS A VISIT SUMMARY EXTRACTED FROM THE [facility] CHART. IT IS NOT A COPY OF THE [facility] PROGRESS NOTE. VIOLA
== END ==
LOC: M PAIN 08:30
PROVIDERS: ATTEND Family Medicine
DX: M51.17 Intervertebral disc disorders with radiculopathy, lumbosacral region (principal); J30.81 Allergic rhinitis due to animal (cat) (dog) hair and dander; Z87.891 Personal history of nicotine dependence; Z88.8 Allergy status to other drugs, medicaments and biological substances; Z79.82 Long term (current) use of aspirin; Z79.899 Other long term (current) drug therapy

== ENCOUNTER → 2020-12-10 | Outpatient (CLI) | payer MEDICARE, OTHER | LOC: M LABSMTC 09:44 | PROVIDERS: ATTEND Anesthesiology | DX: Z01.812 Encounter for preprocedural laboratory examination (principal); Z11.52 Encounter for screening for COVID-19 ==

== ENCOUNTER 2020-12-15 12:17 | Day surgery (SDC) | payer OTHER ==
[~2020-12-15] VITALS: Ht 167.6 cm; Wt 81.2 kg
[~2020-12-15 12:17] MED LIST changes: +NS 1,000 ML IV ONE
[2020-12-15] MEDS ORDERED: fentaNYL 100 MCG/2 ML INJECTION (J3010) As Ordered ONE (14:35)
[2020-12-15] MEDS ORDERED: LIDOCAINE 2% 100MG/5ML SDV (FOR ANES.) As Ordered ONE (14:35)
[2020-12-15] MEDS ORDERED: propofoL 200 MG/20 ML VIAL As Ordered ONE (14:35)
--- NOTE | 2020-12-15 15:40 | ROOR ---
Patient Name: Erickson Hreczayossi Procedure Date: 12/15/2020 2:49 PM Date of : 1955 Age: 65 Room: [facility] Gender: Male Note Status: Finalized Procedure: Upper GI endoscopy Indications: Epigastric abdominal pain Providers: Javier Buck MD Referring MD: Cheko Lira MD Requesting Provider: Medicines: Monitored Anesthesia Care Complications: No immediate complications. Procedure: Pre-Anesthesia Assessment: - Prior to the procedure, a History and Physical was performed, and patient medications and allergies were reviewed. The patient is competent. The risks and benefits of the procedure and the sedation options and risks were discussed with the patient. All questions were answered and informed consent was obtained. Patient identification and proposed procedure were verified by the physician, the nurse and the career orientation teacher in the endoscopy suite. Mental Status Examination: alert and oriented. Airway Examination: normal oropharyngeal airway and neck mobility. Respiratory Examination: clear to auscultation. CV Examination: normal. Prophylactic Antibiotics: The patient does not require prophylactic antibiotics. Prior Anticoagulants: The patient has taken no previous anticoagulant or antiplatelet agents except for aspirin. ASA Grade Assessment: III - A patient with severe systemic disease. After reviewing the risks and benefits, the patient was deemed in satisfactory condition to undergo the procedure. The anesthesia plan was to use monitored anesthesia care (MAC). Immediately prior to administration of medications, the patient was re-assessed for adequacy to receive sedatives. The heart rate, respiratory rate, oxygen saturations, blood pressure, adequacy of pulmonary ventilation, and response to care were monitored throughout the procedure. The physical status of the patient was re-assessed after the procedure. The Endoscope was introduced through the mouth, and advanced to the second part of duodenum. The upper GI endoscopy was accomplished without difficulty. The patient tolerated the procedure well. Findings: The Z-line was irregular and was found 37 cm from the incisors. This was biopsied with a cold forceps for evaluation to rule out Diop's Esophagus. Estimated blood loss was minimal. Segmental moderate inflammation characterized by adherent blood, congestion (edema), erosions, erythema and serpentine ulcerations was found in the gastric antrum. Biopsies were taken with a cold forceps for Helicobacter pylori testing. A small submucosal mass with no bleeding was found in the second portion of the duodenum. Biopsies were taken with a cold forceps for histology. suspect either lipoma or small gist Impression: - Z-line irregular, 37 cm from the incisors. Biopsied. - Chronic gastritis. Biopsied. - Likely benign duodenal mass. Biopsied. Recommendation: - Discharge patient to home (ambulatory). - avoid NSAIDs Procedure Code(s): --- Professional --- 17081, Esophagogastroduodenoscopy, flexible, transoral; with biopsy, single or multiple Diagnosis Code(s): --- Professional --- K22.8, Other specified diseases of esophagus K29.50, Unspecified chronic gastritis without bleeding K31.89, Other diseases of stomach and duodenum R10.13, Epigastric pain CPT copyright 2019 [employer]. All rights reserved. The codes documented in this report are preliminary and upon cryogenics engineer review may be revised to meet current compliance requirements. Javier Buck MD Javier Buck MD 12/15/2020 3:40:31 PM Electronically signed by Javier Buck MD Number of Addenda: 0 Note Initiated On: 12/15/2020 2:49 PM Estimated Blood Loss: Estimated blood loss was minimal.
--- NOTE | 2020-12-15 15:43 | ROOR ---
Patient Name: Erickson Mayerecfely Procedure Date: 12/15/2020 2:50 PM Date of : 1955 Age: 65 Room: [facility] Gender: Male Note Status: Finalized Procedure: Colonoscopy Indications: Change in bowel habits Providers: Javier Buck MD Referring MD: Cheko Lira MD Requesting Provider: Medicines: Monitored Anesthesia Care Complications: No immediate complications. Procedure: Pre-Anesthesia Assessment: - Prior to the procedure, a History and Physical was performed, and patient medications and allergies were reviewed. The patient is competent. The risks and benefits of the procedure and the sedation options and risks were discussed with the patient. All questions were answered and informed consent was obtained. Patient identification and proposed procedure were verified by the physician, the nurse and the top ironer in the procedure room. Mental Status Examination: alert and oriented. Airway Examination: normal oropharyngeal airway and neck mobility. Respiratory Examination: clear to auscultation. CV Examination: normal. Prophylactic Antibiotics: The patient does not require prophylactic antibiotics. Prior Anticoagulants: The patient has taken no previous anticoagulant or antiplatelet agents. ASA Grade Assessment: III - A patient with severe systemic disease. After reviewing the risks and benefits, the patient was deemed in satisfactory condition to undergo the procedure. The anesthesia plan was to use monitored anesthesia care (MAC). Immediately prior to administration of medications, the patient was re-assessed for adequacy to receive sedatives. The heart rate, respiratory rate, oxygen saturations, blood pressure, adequacy of pulmonary ventilation, and response to care were monitored throughout the procedure. The physical status of the patient was re-assessed after the procedure. The Colonoscope was introduced through the anus and advanced to the cecum, identified by appendiceal orifice and ileocecal valve. The colonoscopy was performed without difficulty. The patient tolerated the procedure well. The quality of the bowel preparation was excellent. Findings: The perianal and digital rectal examinations were normal. A 4 mm polyp was found in the transverse colon. The polyp was sessile. The polyp was removed with a cold snare. Resection and retrieval were complete. Estimated blood loss was minimal. There is no endoscopic evidence of bleeding, erythema, inflammation, stricture or ulcerations in the entire colon. No additional abnormalities were found on retroflexion. Impression: - One 4 mm polyp in the transverse colon, removed with a cold snare. Resected and retrieved. Recommendation: - Discharge patient to home (ambulatory). - Use original regular Metamucil one tablespoon PO daily indefinitely. Procedure Code(s): --- Professional --- 50216, Colonoscopy, flexible; with removal of tumor(s), polyp(s), or other lesion(s) by snare technique Diagnosis Code(s): --- Professional --- K63.5, Polyp of colon R19.4, Change in bowel habit CPT copyright 2019 [employer]. All rights reserved. The codes documented in this report are preliminary and upon medical records coder review may be revised to meet current compliance requirements. Javier Buck MD Javier Buck MD 12/15/2020 3:43:37 PM Electronically signed by Javier Buck MD Number of Addenda: 0 Note Initiated On: 12/15/2020 2:50 PM Estimated Blood Loss: Estimated blood loss was minimal.
[2020-12-15 15:55] VITALS: BP 126/69
== END 2020-12-15 16:05 | disposition home or self-care (01) ==
LOC: M OPP 12:17
PROVIDERS: ATTEND Surgery
DX: D12.3 Benign neoplasm of transverse colon (principal); R19.4 Change in bowel habit; K22.8 Other specified diseases of esophagus; K29.50 Unspecified chronic gastritis without bleeding; K31.89 Other diseases of stomach and duodenum; R10.13 Epigastric pain; Z79.82 Long term (current) use of aspirin; Z79.891 Long term (current) use of opiate analgesic; Z79.899 Other long term (current) drug therapy; Z87.891 Personal history of nicotine dependence
CPT/HCPCS: 43239; 45385; 88305; J3010

== ENCOUNTER → 2021-01-06 | Outpatient (CLI) | payer OTHER ==
[~2021-01-06] MED LIST changes: -NS 1,000 ML IV ONE
== END ==
LOC: M LABSMTC 09:35
PROVIDERS: ATTEND Anesthesiology
DX: Z01.812 Encounter for preprocedural laboratory examination (principal); Z20.822 Contact with and (suspected) exposure to COVID-19

== ENCOUNTER → 2021-01-11 | Outpatient (CLI) | payer OTHER ==
[~2021-01-11] MED LIST changes: +ISOVUE-M 300 61% 15ML VIAL As Ordered ONE; +LIDOCAINE 1% SDV 30ML VIAL As Ordered ONE; +NORCO, ANEXSIA 5/325MG TABLET (HYDROcodone/ACETAMINOPHEN) As Ordered ONE; +diazePAM 5MG TABLET As Ordered ONE; +methylPREDNISolone SUSP 40MG/ML 1ML VIAL (DEPO MEDROL) As Ordered ONE
--- NOTE | 2021-01-12 04:50 | ECWPNPC ---
PATIENT NAME: MARLA RICO : 1955 GENDER: MALE VISIT DATE: 01/11/2021 DISCHARGE DATE: 01/11/21 1010 VISIT LOCKED DATE TIME: PHYSICIAN: NOE RAM MD RESOURCE: NOE RAM MD REASON FOR APPOINTMENT 1. LUMBAR EPIDURAL STEROID INJECTION HISTORY OF PRESENT ILLNESS GENERAL: -. FALL RISK SCREENING: SCREENING : NO FALLS REPORTED IN THE LAST YEAR. PAIN SCREENING: PATIENT HAS A COMPLAINT OF ACUTE OR CHRONIC PAIN :YES LOCATION OF PAIN:LOW BACK INTENSITY OF PAIN (SCALE OF 1 TO 10):6 WHAT DOES YOUR PAIN FEEL LIKE:STABBING, SHOOTING DURATION:CONTINOUS, CONSTANT PAIN IS INCREASED BY:ACTIVITIES PAIN IS DECREASED BY:USE OF PAIN MEDICATIONS NURSING NOTE: -. PAIN CENTER INTAKE QUESTIONS: DO YOU HAVE A HISTORY OF MRSA? :NO DO YOU TAKE A BLOOD THINNERS? :NO DO YOU HAVE ANY BLEEDING DISORDERS? :NO ANY NEW NUMBNESS OR WEAKNESS IN YOUR LEGS OR ARMS? :NO ANY PACEMAKER,DEFIBRILLATOR, OR DORSAL COLUMN STIMULATOR? :NO DO YOU HAVE ANY RASHES OR OPEN SORES? :NO ARE YOU ALLERGIC TO IV DYE? :NO ARE YOU DIABETIC? :NO ANY NEW PROBLEMS WITH YOUR MEDICATIONS? :NO HAVE YOU RECEIVED A VACCINE IN THE PAST 30 DAYS? :YES IF SO WHAT VACCINE AND WHEN? ALLERGY SHOTS 01/05/21 DO YOU PLAN TO RECEIVE A VACCINE IN THE NEXT 21 DAYS? :NO DO YOU TAKE ANY IMMUNOSUPPRESSIVE MEDICATIONS? :NO ANY HISTORY OF SEIZURES? :NO ANY HISTORY OF CARDIAC ISSUES OR EVENTS? :NO DO YOU HAVE ANY KIDNEY OR LIVER DISEASE? :NO DO YOU HAVE SLEEP APNEA? :NO ANY RECENT HEAD INJURY? :NO DO YOU HAVE ANY NEW INFECTIONS? :NO IS THERE A CHANCE YOU COULD BE ? :NO ARE YOU BREAST FEEDING? :NO WHEN DID YOU LAST EAT? : -01/11 1840 WHEN DID YOU LAST DRINK? : -01/12 640 WHAT DID YOU LAST DRINK? : -WATER NAME OF PERSON DRIVING YOU HOME? : SON DO YOU HAVE ANY OTHER QUESTIONS OR CONCERNS? : - CURRENT MEDICATIONS TAKING ARTIFICIAL TEARS 1.4 % SOLUTION DIRECTED OPHTHALMIC FOUR TIMES DAILY TAKING ROSUVASTATIN CALCIUM 40 MG TABLET 1 TABLET ORALLY ONCE A DAY TAKING MULTIVITAMIN - TABLET 1 TABLET ORALLY TWICE DAILY TAKING LORATADINE 10 MG TABLET 1 TABLET ORALLY ONCE A DAY TAKING FLUTICASONE PROPIONATE HFA 110 MCG/ACT AEROSOL 1 PUFF INHALATION TWICE A DAY TAKING ASCORBIC ACID 500 MG TABLET CHEWABLE 1 TABLET ORALLY TWICE DAILY TAKING VENTOLIN HFA 108 (90 BASE) MCG/ACT AEROSOL SOLUTION 1 PUFF NEEDED INHALATION EVERY 4 HRS TAKING MONTELUKAST SODIUM 10 MG TABLET 1 TABLET ORALLY ONCE A DAY TAKING ASPIR-81 TAKING HYDROCHLOROTHIAZIDE 25 MG TABLET 1 TABLET IN THE MORNING ORALLY ONCE A DAY TAKING LISINOPRIL 20 MG TABLET 1 TABLET ORALLY ONCE A DAY, NOTES: 01/10 0550 TAKING TRAMADOL HCL 50 MG TABLET 1 TABLET NEEDED ORALLY ONCE A DAY, NOTES: 2 WEEKS AGO TAKING DICLOFENAC SOD-OCCLUSIVE DRESS _ THERAPY PACK DIRECTED GEL EXTERNALLY DIRECTED TAKING PANTOPRAZOLE SODIUM 20 MG TABLET DELAYED RELEASE 1 TABLET ORALLY ONCE A DAY, NOTES: NOT SURE OF DOSE NOT-TAKING OXYCODONE-ACETAMINOPHEN 5-325 MG TABLET 1 TABLET NEEDED ORALLY EVERY 6 HRS, NOTES: ONLY USES WHEN THE PAIN IS UNBEARABLE PAST MEDICAL HISTORY HTN ALLERGIES ENVIRONMENTAL: CONGESTION - ALLERGY TIMOLOL HEMIHYDRATE: ALLERGY CATS: CONGESTION - ALLERGY SOCIAL HISTORY GENERAL: TOBACCO USE ARE YOU A:FORMER SMOKER HOW LONG HAS IT BEEN SINCE YOU LAST SMOKED?> 10 YEARS LATEX QUESTIONNAIRE LATEX ALLERGY : HAVE YOU EVER DEVELOPED ANY TYPE OF REACTION AFTER HANDLING LATEX PRODUCTS SUCH RUBBER GLOVES, CONDOMS, DIAPHRAGMS, BALLOONS, SOCKS, OR UNDERWEAR?NO LATEX ALLERGY : HAVE YOU EVER DEVELOPED ANY TYPE OF REACTION DURING OR AFTER DENTAL APPOINTMENT, VAGINAL/RECTAL EXAMINATION, SURGICAL PROCEDURE, OR ANY OTHER EXPOSURE?NO DATE ASKED : 11/23/2020 LATEX RISK : HAVE YOU EVER HAD ANY DIFFICULTY BREATHING OR HIVES AFTER EATING OR HANDLING ANY FRUITS, OR VEGETABLES; SUCH KIWI, BANANAS, STONE FRUITS, OR CHESTNUTSNO LATEX RISK : DO YOU HAVE A PREVIOUS PERSONAL HISTORY OF MORE THAN NINE SURGERIES, SPINA BIFIDA, OR REPEATED CATHERIZATIONS? YES - PLEASE INDICATE : > 9 SURGERIES LATEX RISK : ARE YOU FREQUENTLY EXPOSED TO LATEX PRODUCTS IN YOUR OCCUPATION?NO ALCOHOL USE: RARELY. RECREATIONAL DRUG USE DRUG USE?NO LANGUAGE LANGUAGES SPOKEN:[place] EDUCATION LEVEL OF EDUCATION:COLLEGE LEARNING BARRIERS / SPECIAL NEEDS BARRIERS TO LEARNING?NO HEARING IMPAIRED?YES TINNITUS VISION IMPAIRED?YES COGNITIVELY IMPAIRED?NO :HEARING AIDES :CORRECTIVE LENSES READINESS TO LEARN?YES LEARNING PREFERENCES?NO LEARNING CAPABILITIES PRESENT?YES EMOTIONAL BARRIERS?NO SPECIAL DEVICES?YES :CANE, OTHER ORTHOTIC INSERT FOR RIGHT FOOT. 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 (Y/N) YES, NA INITIALS AW 0822, REVIEWED BY: PETER. EXAMINATION GENERAL: THE PATIENT IS ALERT, ORIENTED TIMES THREE AND COOPERATIVE. LUNGS ARE CLEAR TO AUSCULTATION. HEART SHOWS REGULAR RHYTHM, NO MURMURS AND NO GALLOPS. ASSESSMENTS INTERVERTEBRAL DISC DISORDER WITH RADICULOPATHY OF LUMBOSACRAL REGION - M51.17 (PRIMARY) TREATMENT INTERVERTEBRAL DISC DISORDER WITH RADICULOPATHY OF LUMBOSACRAL REGION [facility] FLUORO GUIDE SPINE INJECTION (PAIN)[id number] COMPLETION OF PROCEDURAL VISIT WHEN MEETS CRITERIA MEDICATION: NORCO TABLET 5MG/325MG ORALLY (HYDROCODONE/ACETAMINOPHEN)AFSHINBIENVENIDO 01/11/2021 8:45:07 AM > VERIFIED DANIEL BARRY 01/11/2021 8:47:24 AM > ADMINISTERED MEDICATION: VALIUM TAB 5MG ORALLY (DIAZEPAM)AFSHINBIENVENIDO GRULLON 01/11/2021 8:45:35 AM > VERIFIED DANIEL BARRY 01/11/2021 8:48:02 AM > ADMINISTERED SALINE LOCKBIENVENIDO PEPE 01/11/2021 8:43:21 AM > #22 SL STARTED X 1 ATTEMPT BY THIS ASSEMBLER FISHING FLOATS IN RIGHT HAND. SITE ASYMPTOMATIC, FLUSHES WELL. PATIENT TOLERATED PROCEDURE WELL. OTHERS NOTES: PAT DONE. 01/07/21 EM. PROCEDURES PAIN NURSING RECORD PROCEDURE IN ROOM 0910, PHYSICIAN IN ROOM 0940, START 0944, FINISH 0948, PHYSICIAN OUT OF ROOM 0950, OUT OF ROOM 0959, ECG OTHER SB 50'S, PATIENT SHIELDED YES, SAFETY STRAP YES, PREP BETADINE Rudy GAYLE RN, DRESSING TEGADERM DR. RAM LOC: 1. ALERT, ORIENTED RESP: 1. REGULAR, NO DYSPNEA COLOR: 1. PINK SKIN: 1. WARM, DRY POSITION: 1. PRONE VITALS: 0916 P54 02 97% BP 130/71 AW 0917 P50 02 97 BP 136/77 , DANIEL BARRY 01/11/2021 9:25:26 AM > 172/89 HR 52 16 95% R/A ASHA MARY 01/11/2021 9:40:10 AM > 171/93 HR 54 16 96% R/A ASHA MARY 01/11/2021 10:03:50 AM > 166/79 HR 54 16 97% R/A D/C V/S COMPLETION OF PROCEDURE APPOINTMENT: POST PAIN 0, DRESSING SITE DRY AND INTACT, IV DISCONTINUED, SITE CLEAR, CATHETER INTACT, GAIT STEADY, TEACHING COMPLETED, PATIENT ACKNOWLEDGES UNDERSTANDING YES, PROCEDURE APPOINTMENT COMPLETED AT 1005 PRE PROCEDURE DIAGNOSIS LUMBAR DISC DISORDER WITH RADICULOPATHY POST PROCEDURE DIAGNOSIS LUMBAR DISC DISORDER WITH RADICULOPATHY PROCEDURE LUMBAR EPIDURAL STEROID INJECTION UNDER FLUOROSCOPIC GUIDANCE SURGEON DR. NOE RAM CUSTOM HOME INSTALLER NONE ANESTHESIA LOCAL PRE PROCEDURE NOTE THE PATIENT HAS A HISTORY OF CHRONIC LOW BACK PAIN. I EVALUATED THE PATIENT AND REVIEWED THE CHART. I WENT OVER THE RISKS, ALTERNATIVES, AND BENEFITS ASSOCIATED WITH THIS PROCEDURE. THE PATIENT WOULD LIKE TO PROCEED AND GIVE CONSENT TO PERFORMED THE PROCEDURE. THE PATIENT DENIES UNEXPLAINABLE WEIGHT LOSS, FEVER, CHILLS, OR NEW CHANGES IN URINARY OR BOWEL CONTROL. THE PATIENT IS COVID-19 NEGATIVE DESCRIPTION OF PROCEDURE THE PATIENT WAS BROUGHT TO THE PROCEDURE ROOM AND PLACED IN THE PRONE POSITION. THE LUMBOSACRAL AREA WAS CLEANED WITH BETADINE SOLUTION AND DRAPED ASEPTICALLY. THE PROCEDURE WAS DONE UNDER STERILE CONDITIONS. A TIMEOUT WAS PERFORMED WHERE THE CONSENTED SITE WAS VERIFIED WITH EVERYONE IN THE ROOM. UNDER FLUOROSCOPIC GUIDANCE, THE TARGET POINT WAS SELECTED AT THE INTERLAMINAR LEVEL OF L4-L5. I CONFIRMED AGAIN THE SITE OF TARGET. LIDOCAINE WAS USED TO NUMB THE SKIN AND THE SUBCUTANEOUS TISSUE BELOW IT. EPIDURAL TUOHY NEEDLE, 17-GAUGE, WAS ADVANCED UNDER FLUOROSCOPIC GUIDANCE AND FOLLOWING PATIENT FEEDBACK UNTIL THE EPIDURAL SPACE WAS REACHED 6 CM DEEP INTO THE SKIN BY THE LOSS OF RESISTANCE TECHNIQUE. ISOVUE-M DYE 30%, 0.25 ML, WAS INJECTED SHOWING ADEQUATE SPREAD OF THE DYE. THEN, A SOLUTION OF 3 ML OF NORMAL SALINE WITH DEPO-MEDROL 40 MG WAS INJECTED SLOWLY FOLLOWING PATIENT FEEDBACK. THE MEDICATIONS WERE VERIFIED WITH THE NURSE. THERE WAS NO EVIDENCE OF BLOOD, PARESTHESIA OR CEREBROSPINAL FLUID DURING THE PROCEDURE. THE PATIENT WAS SENT TO THE RECOVERY ROOM. THE PATIENT WAS MOVING THE EXTREMITIES AND DOING WELL. THERE WERE NO COMPLICATIONS DURING THE PROCEDURE. ESTIMATED BLOOD LOSS WAS LESS THAN 5 ML. FLUOROSCOPY TIME WAS 7 SECONDS POST PROCEDURE NOTE THE PATIENT WILL BE SEEN IN A FOLLOW UP IN THE NEXT FEW WEEKS. I AM LOOKING FOR LONG LASTING RELIEF FOR THE PATIENT WITH THIS INTERVENTION. INSTRUCTIONS WERE GIVEN, QUESTIONS WERE ANSWERED, AND THE PATIENT EXPRESSED UNDERSTANDING AND AGREES WITH THE PLAN. I, REKHA OMER, DOCUMENTED THE ABOVE INFORMATION ACTING A SCRIBE FOR DR. RAM. I HAVE REVIEWED THE ABOVE DOCUMENT, WRITTEN BY REKHA OMER, MEDICAL RECORDS TECHNICIAN, AND I VERIFY THAT IT IS ACCURATE PROCEDURE CODES 71018 LUMBAR/SACRAL W/ IMAGING DISPOSITION & COMMUNICATION FOLLOW UP FOLLOW UP IN 2 WEEKS (REASON: POST LUMBAR EPIDURAL STEROID INJECTION) ELECTRONICALLY SIGNED BY NOE RAM MD, MD ON 01/11/2021 AT 12:35 PM EDT DISCLAIMER : THIS IS A VISIT SUMMARY EXTRACTED FROM THE [employer] CHART. IT IS NOT A COPY OF THE [employer] PROGRESS NOTE. VIOLA
--- NOTE | 2021-01-12 09:20 | REP ---
INDICATION: PAIN. COMPARISON: None. TECHNIQUE: Intraoperative fluoroscopic imaging using portable C-arm technique. FINDINGS: Images demonstrate catheter and contrast midline overlying lumbar spine. Total fluoroscopic time 7.9 seconds. IMPRESSION: Findings consistent with lumbar spine injection. <Electronically signed by Keith Melo > 01/11/21 0973
== END ==
LOC: M PAIN 08:30
PROVIDERS: ATTEND Anesthesiology
DX: M51.17 Intervertebral disc disorders with radiculopathy, lumbosacral region (principal); Z87.891 Personal history of nicotine dependence; Z88.8 Allergy status to other drugs, medicaments and biological substances; Z79.82 Long term (current) use of aspirin; Z79.899 Other long term (current) drug therapy
CPT/HCPCS: 62323; J1030; Q9967

== ENCOUNTER → 2021-01-25 | Outpatient (CLI) | payer OTHER ==
[~2021-01-25] MED LIST changes: -ISOVUE-M 300 61% 15ML VIAL As Ordered ONE; -LIDOCAINE 1% SDV 30ML VIAL As Ordered ONE; -NORCO, ANEXSIA 5/325MG TABLET (HYDROcodone/ACETAMINOPHEN) As Ordered ONE; -diazePAM 5MG TABLET As Ordered ONE; -methylPREDNISolone SUSP 40MG/ML 1ML VIAL (DEPO MEDROL) As Ordered ONE
--- NOTE | 2021-01-27 03:59 | ECWPNPC ---
PATIENT NAME: MARLA RICO : 1955 GENDER: MALE VISIT DATE: 01/25/2021 DISCHARGE DATE: 01/25/21 141 VISIT LOCKED DATE TIME: PHYSICIAN: KO MARIA RESOURCE: KO MARIA REASON FOR APPOINTMENT 1. POST LUMBAR EPIDURAL STEROID INJECTION HISTORY OF PRESENT ILLNESS GENERAL: HPI 65-YEAR-OLD MALE IN FOR POST LUMBAR EPIDURAL STEROID INJECTION FOLLOW-UP. PATIENT FEELS THE PROCEDURE WAS SUCCESSFUL OVERALL RATING HIS PAIN PREPROCEDURE AT A 6 OUT OF 10 AND POST PROCEDURE AT A 0-1 OUT OF 10. HE FURTHER STATES THE PROCEDURE CONTINUES TO HELP HIM TODAY RATING HIS PAIN CURRENTLY AT A 1 OUT OF 10 AND DESCRIBING IT SHARP.. -. FALL RISK SCREENING: SCREENING : NO FALLS REPORTED IN THE LAST YEAR. PAIN SCREENING: PATIENT HAS A COMPLAINT OF ACUTE OR CHRONIC PAIN :YES LOCATION OF PAIN:BACK INTENSITY OF PAIN (SCALE OF 1 TO 10):1 WHAT DOES YOUR PAIN FEEL LIKE:SHARP DURATION:INTERMITTENT PAIN IS INCREASED BY:ACTIVITIES, PROLONGED STANDING PAIN IS DECREASED BY:USE OF PAIN MEDICATIONS, SITTING NURSING NOTE: -. PAIN CENTER INTAKE QUESTIONS: DO YOU HAVE A HISTORY OF MRSA? :NO DO YOU TAKE A BLOOD THINNERS? :NO ASPIRIN DO YOU HAVE ANY BLEEDING DISORDERS? :NO ANY NEW NUMBNESS OR WEAKNESS IN YOUR LEGS OR ARMS? :NO ANY PACEMAKER,DEFIBRILLATOR, OR DORSAL COLUMN STIMULATOR? :NO DO YOU HAVE ANY RASHES OR OPEN SORES? :NO ARE YOU ALLERGIC TO IV DYE? :NO ARE YOU DIABETIC? :YES BORDERLINE -DIET CONTROLLED ANY NEW PROBLEMS WITH YOUR MEDICATIONS? :NO HAVE YOU RECEIVED A VACCINE IN THE PAST 30 DAYS? :NO DO YOU PLAN TO RECEIVE A VACCINE IN THE NEXT 21 DAYS? :NO DO YOU NEED ANY PRESCRIPTION? :NO DO YOU TAKE ANY IMMUNOSUPPRESSIVE MEDICATIONS? :NO IS THERE A CHANCE YOU COULD BE ? :NO ARE YOU BREAST FEEDING? :NO CURRENT MEDICATIONS TAKING ARTIFICIAL TEARS 1.4 % SOLUTION DIRECTED OPHTHALMIC FOUR TIMES DAILY TAKING ROSUVASTATIN CALCIUM 40 MG TABLET 1 TABLET ORALLY ONCE A DAY TAKING MULTIVITAMIN - TABLET 1 TABLET ORALLY TWICE DAILY TAKING LORATADINE 10 MG TABLET 1 TABLET ORALLY ONCE A DAY TAKING FLUTICASONE PROPIONATE HFA 110 MCG/ACT AEROSOL 1 PUFF INHALATION TWICE A DAY TAKING ASCORBIC ACID 500 MG TABLET CHEWABLE 1 TABLET ORALLY TWICE DAILY TAKING VENTOLIN HFA 108 (90 BASE) MCG/ACT AEROSOL SOLUTION 1 PUFF NEEDED INHALATION EVERY 4 HRS TAKING MONTELUKAST SODIUM 10 MG TABLET 1 TABLET ORALLY ONCE A DAY TAKING ASPIR-81 TAKING HYDROCHLOROTHIAZIDE 25 MG TABLET 1 TABLET IN THE MORNING ORALLY ONCE A DAY TAKING LISINOPRIL 20 MG TABLET 1 TABLET ORALLY ONCE A DAY TAKING TRAMADOL HCL 50 MG TABLET 1 TABLET NEEDED ORALLY ONCE A DAY TAKING DICLOFENAC SOD-OCCLUSIVE DRESS _ THERAPY PACK DIRECTED GEL EXTERNALLY DIRECTED TAKING PANTOPRAZOLE SODIUM 40 MG TABLET DELAYED RELEASE 1 TABLET ORALLY ONCE A DAY NOT-TAKING OXYCODONE-ACETAMINOPHEN 5-325 MG TABLET 1 TABLET NEEDED ORALLY EVERY 6 HRS, NOTES: ONLY USES WHEN THE PAIN IS UNBEARABLE MEDICATION LIST REVIEWED AND RECONCILED WITH THE PATIENT PAST MEDICAL HISTORY HTN ALLERGIES ENVIRONMENTAL: CONGESTION - ALLERGY TIMOLOL HEMIHYDRATE: ALLERGY CATS: CONGESTION - ALLERGY SOCIAL HISTORY GENERAL: TOBACCO USE ARE YOU A:FORMER SMOKER HOW LONG HAS IT BEEN SINCE YOU LAST SMOKED?> 10 YEARS LATEX QUESTIONNAIRE LATEX ALLERGY : HAVE YOU EVER DEVELOPED ANY TYPE OF REACTION AFTER HANDLING LATEX PRODUCTS SUCH RUBBER GLOVES, CONDOMS, DIAPHRAGMS, BALLOONS, SOCKS, OR UNDERWEAR?NO LATEX ALLERGY : HAVE YOU EVER DEVELOPED ANY TYPE OF REACTION DURING OR AFTER DENTAL APPOINTMENT, VAGINAL/RECTAL EXAMINATION, SURGICAL PROCEDURE, OR ANY OTHER EXPOSURE?NO LATEX RISK : HAVE YOU EVER HAD ANY DIFFICULTY BREATHING OR HIVES AFTER EATING OR HANDLING ANY FRUITS, OR VEGETABLES; SUCH KIWI, BANANAS, STONE FRUITS, OR CHESTNUTSNO LATEX RISK : DO YOU HAVE A PREVIOUS PERSONAL HISTORY OF MORE THAN NINE SURGERIES, SPINA BIFIDA, OR REPEATED CATHERIZATIONS? YES - PLEASE INDICATE : > 9 SURGERIES LATEX RISK : ARE YOU FREQUENTLY EXPOSED TO LATEX PRODUCTS IN YOUR OCCUPATION?NO DATE ASKED : 01/25/2021 ALCOHOL USE: RARELY. RECREATIONAL DRUG USE DRUG USE?NO LANGUAGE LANGUAGES SPOKEN:[place] EDUCATION LEVEL OF EDUCATION:COLLEGE LEARNING BARRIERS / SPECIAL NEEDS CHANGE FROM LAST VISIT?NO BARRIERS TO LEARNING?NO HEARING IMPAIRED?YES TINNITUS :HEARING AIDES VISION IMPAIRED?YES :CORRECTIVE LENSES COGNITIVELY IMPAIRED?NO READINESS TO LEARN?YES LEARNING PREFERENCES?NO LEARNING CAPABILITIES PRESENT?YES EMOTIONAL BARRIERS?NO SPECIAL DEVICES?YES :CANE, OTHER ORTHOTIC INSERT FOR RIGHT FOOT. 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 CHILLS NO . WEIGHT CHANGE OF UNKNOWN REASONS NO . GASTROENTEROLOGY: NEW UNEXPLAINABLE CHANGES IN BOWEL CONTROL NO . CONSTIPATION NO . GENITOURINARY: ANY NEW CHANGE IN BLADDER CONTROL? NO . NEUROLOGY: NEW ONSET DIZZINESS OR NEUROLOGICAL CHANGES NOT MENTIONED NO . NEW NUMBNESS OR PAIN PATTERNS NOT MENTIONED AND PERTINENT TO TODAY'S VISIT NO . CARDIOLOGY: NEW CHEST PRESSURE NO . PATIENT DENIES NO . RESPIRATORY: UNEXPLAINABLE COUGH NO . NEW SHORTNESS OF BREATH NO . VITAL SIGNS WT 180.8 LBS, HT 66 IN, BMI 29.18 INDEX, BP 149/75 MM HG, HR 69 /MIN, RR 18 /MIN, TEMP 98.6 F, OXYGEN SAT % 96%, SAFE IN ENV? (Y/N) YES, NA INITIALS DE 13:55, REVIEWED BY: MARYJANE SANTA MA. EXAMINATION GENERAL EXAMINATION: GENERALNO ACUTE DISTRESS, WELL NOURISHED AND HYDRATED. PSYCHAPPROPRIATE MOOD AND AFFECT . LUNGS:CLEAR TO AUSCULTATION BILATERALLY, NO WHEEZES, RHONCHI, RALES. HEART:NO MURMURS, REGULAR RATE AND RHYTHM. ASSESSMENTS OTHER CHRONIC PAIN - G89.29 (PRIMARY) INTERVERTEBRAL DISC DISORDER WITH RADICULOPATHY OF LUMBOSACRAL REGION - M51.17 TREATMENT OTHER CHRONIC PAIN PAIN PROCEDURE LOGDATE OF PROCEDURE01/11/21PROCEDURE:LUMBAR EPIDURAL STEROID INJECTIONAMOUNT OF PRE SEDATEVALIUM 5MG, NORCO 5/325MGRESULT:PREPROCEDURE 6 OUT OF 10 POST PROCEDURE 0-1 OUT OF 10. CONTINUES TO HELP TODAY. INTERVERTEBRAL DISC DISORDER WITH RADICULOPATHY OF LUMBOSACRAL REGION NOTES: 65-YEAR-OLD MALE IN FOR POST LUMBAR EPIDURAL STEROID INJECTION FOLLOW-UP. GIVEN PRESENTING SYMPTOMS RECOMMEND FOLLOW-UP IN 2 MONTHS. PATIENT HAS EXPRESSED UNDERSTANDING OF AND WAS IN AGREEMENT WITH TREATMENT PLAN. GIVEN TIME TO ASK QUESTIONS AND EXPRESS CONCERNS. PROCEDURE CODES FA211 ESTABILISHED PATIENT [facility] FACILITY CHARGE DISPOSITION & COMMUNICATION FOLLOW UP 2 MONTHS (REASON: BACK PAIN ) ELECTRONICALLY SIGNED BY AVIS ROBBINS ON 01/26/2021 AT 09:52 AM EDT DISCLAIMER : THIS IS A VISIT SUMMARY EXTRACTED FROM THE [email or web address] CHART. IT IS NOT A COPY OF THE [email or web address] PROGRESS NOTE. MTDD
== END ==
LOC: M PAIN 14:00
PROVIDERS: ATTEND Family Medicine
DX: G89.29 Other chronic pain (principal); M51.17 Intervertebral disc disorders with radiculopathy, lumbosacral region; Z87.891 Personal history of nicotine dependence; Z88.8 Allergy status to other drugs, medicaments and biological substances; Z79.82 Long term (current) use of aspirin; Z79.899 Other long term (current) drug therapy

== ENCOUNTER → 2021-03-30 | Outpatient (CLI) | payer OTHER | LOC: M PAIN 09:00 | PROVIDERS: ATTEND Anesthesiology | DX: M48.061 Spinal stenosis, lumbar region without neurogenic claudication (principal); I10 Essential (primary) hypertension; J30.2 Other seasonal allergic rhinitis; J30.81 Allergic rhinitis due to animal (cat) (dog) hair and dander; Z87.891 Personal history of nicotine dependence; Z79.82 Long term (current) use of aspirin; Z79.891 Long term (current) use of opiate analgesic; Z79.899 Other long term (current) drug therapy; Z88.8 Allergy status to other drugs, medicaments and biological substances ==

== ENCOUNTER → 2021-07-29 | Outpatient (CLI) | payer OTHER ==
[~2021-07-29] MED LIST changes: +CYCL-707 PO; +LIDO5DIS41 TD; +OMEP-173 PO; -OMEP-218 PO
== END ==
LOC: M PAIN 14:30
PROVIDERS: ATTEND Anesthesiology
DX: Z53.21 Procedure and treatment not carried out due to patient leaving prior to being seen by health care provider (principal)

== ENCOUNTER 2021-08-10 10:21 | Emergency (ER) | payer OTHER ==
[~2021-08-10] VITALS: Ht 167.6 cm; Wt 79.5 kg
[2021-08-10] MEDS ORDERED: TRAM50TA2 PO (10:29)
[2021-08-10] MEDS ORDERED: KETOROLAC 30 MG/ML 1ML VIAL IM ONE (12:05)
[2021-08-10] MEDS ORDERED: LIDOCAINE 5% (LIDODERM) PATCH TD ONE (12:05)
[2021-08-10] MEDS ORDERED: METH-1164 PO (12:05)
[2021-08-10 12:51] VITALS: BP 140/80
[2021-08-10] MEDS ORDERED: **NOTE PATIENT COMMENT** MISC XX SCH (21:00)
== END 2021-08-10 12:55 | disposition home or self-care (01) ==
LOC: M ED 10:21
DX: G89.29 Other chronic pain (principal); M54.16 Radiculopathy, lumbar region; M51.26 Other intervertebral disc displacement, lumbar region; I10 Essential (primary) hypertension; E78.5 Hyperlipidemia, unspecified; J44.9 Chronic obstructive pulmonary disease, unspecified; R51.9 Headache, unspecified; Z87.891 Personal history of nicotine dependence; Z79.899 Other long term (current) drug therapy; Z79.82 Long term (current) use of aspirin
CPT/HCPCS: 96372; 99283; J1885

== ENCOUNTER → 2021-08-15 | Outpatient (CLI) | payer OTHER ==
[~2021-08-15] MED LIST changes: +METH-1164 PO
== END ==
LOC: M PAIN 13:00
PROVIDERS: ATTEND Anesthesiology
DX: M48.061 Spinal stenosis, lumbar region without neurogenic claudication (principal); M51.17 Intervertebral disc disorders with radiculopathy, lumbosacral region; G89.29 Other chronic pain; Z87.891 Personal history of nicotine dependence; Z88.8 Allergy status to other drugs, medicaments and biological substances; Z79.82 Long term (current) use of aspirin; Z79.899 Other long term (current) drug therapy

== ENCOUNTER → 2021-09-29 | Outpatient (CLI) | payer OTHER | LOC: M PAIN 09:45 | PROVIDERS: ATTEND Anesthesiology | DX: M48.062 Spinal stenosis, lumbar region with neurogenic claudication (principal); M51.16 Intervertebral disc disorders with radiculopathy, lumbar region; G89.29 Other chronic pain; Z87.891 Personal history of nicotine dependence; Z79.82 Long term (current) use of aspirin; Z79.899 Other long term (current) drug therapy ==

== ENCOUNTER → 2021-12-13 | Outpatient (CLI) | payer OTHER ==
[~2021-12-13] MED LIST changes: +LIDO5DIS41 TOP; +[UNRECOGNIZED DRUG - OTHER] TOP
== END ==
LOC: M LABSMTC 09:23
PROVIDERS: ATTEND Anesthesiology
DX: Z11.52 Encounter for screening for COVID-19 (principal); Z20.822 Contact with and (suspected) exposure to COVID-19

== ENCOUNTER → 2021-12-16 | Outpatient (CLI) | payer OTHER ==
[~2021-12-16] MED LIST changes: +ISOVUE-M 300 61% 15ML VIAL As Ordered ONE; +LIDOCAINE 1% SDV 30ML VIAL As Ordered ONE; +NORCO, ANEXSIA 5/325MG TABLET (HYDROcodone/ACETAMINOPHEN) As Ordered ONE; +diazePAM 5MG TABLET As Ordered ONE; +methylPREDNISolone SUSP 40MG/ML 1ML VIAL (DEPO MEDROL) As Ordered ONE
[2021-12-16 11:00] VITALS: BP 168/87
== END ==
LOC: M IRPRO 08:26
PROVIDERS: ATTEND Anesthesiology
DX: M48.062 Spinal stenosis, lumbar region with neurogenic claudication (principal); G89.29 Other chronic pain; J44.9 Chronic obstructive pulmonary disease, unspecified; M19.90 Unspecified osteoarthritis, unspecified site; Z86.59 Personal history of other mental and behavioral disorders
CPT/HCPCS: 62323; J1030; Q9967

== ENCOUNTER → 2023-07-27 | Outpatient (CLI) | payer OTHER, MEDICARE ==
[~2023-07-27] MED LIST changes: +ARTIDRO4 OS; +DICL100G10 TOP; -DICL1GEL3 TOP; -ISOVUE-M 300 61% 15ML VIAL As Ordered ONE; -LIDOCAINE 1% SDV 30ML VIAL As Ordered ONE; +LORA-1041 PO; -LORA-674 PO; +MONT-5 PO; -NORCO, ANEXSIA 5/325MG TABLET (HYDROcodone/ACETAMINOPHEN) As Ordered ONE; -POLYOPD OS; -SING10TA32 PO; +TIMO0.5S20 OD; -TIMO0.5S29 OD; -diazePAM 5MG TABLET As Ordered ONE; -methylPREDNISolone SUSP 40MG/ML 1ML VIAL (DEPO MEDROL) As Ordered ONE
== END ==
LOC: M PLARAD 13:29
PROVIDERS: ATTEND Internal Medicine
DX: M51.36 Other intervertebral disc degeneration, lumbar region (principal); M50.30 Other cervical disc degeneration, unspecified cervical region; M54.16 Radiculopathy, lumbar region; M54.12 Radiculopathy, cervical region

== ENCOUNTER 2023-11-10 09:25 | Emergency (ER) | payer OTHER, MEDICARE ==
[~2023-11-10] VITALS: Ht 167.6 cm; Wt 84.8 kg
[2023-11-10] MEDS ORDERED: CENT1TAB2 PO (09:40)
[2023-11-10] MEDS ORDERED: EZET10TA21 PO (09:40)
[2023-11-10] MEDS ORDERED: METF500T13 PO (09:40)
[2023-11-10] MEDS ORDERED: PANT40TA29 PO (09:40)
[2023-11-10] MEDS ORDERED: NESI12.5 PO (09:40)
[2023-11-10] MEDS: traMADol 50 MG TAB PO ONE (11:33)
[2023-11-10] MEDS: diazePAM 5MG TABLET PO ONE (11:33)
[2023-11-10] MEDS: LIDOCAINE 5% (LIDODERM) PATCH TD ONE (11:34)
[2023-11-10] MEDS: KETOROLAC 30 MG/ML 1ML VIAL IM ONE (11:34)
[2023-11-10] MEDS ORDERED: VALI2TAB PO (13:30)
[2023-11-10] MEDS ORDERED: MEDR4PAK PO (13:31)
[2023-11-10] MEDS ORDERED: LIDO5DIS41 TOP (13:31)
[2023-11-10 13:41] VITALS: BP 144/76; TEMP 96.3; O2SAT 96
== END 2023-11-10 13:48 | disposition home or self-care (01) ==
LOC: M ED 09:25
DX: M54.12 Radiculopathy, cervical region (principal); M50.30 Other cervical disc degeneration, unspecified cervical region; I10 Essential (primary) hypertension; E78.5 Hyperlipidemia, unspecified; K44.9 Diaphragmatic hernia without obstruction or gangrene; Z87.891 Personal history of nicotine dependence; Z79.52 Long term (current) use of systemic steroids; Z79.82 Long term (current) use of aspirin; Z79.811 Long term (current) use of aromatase inhibitors; Z79.4 Long term (current) use of insulin; Z79.899 Other long term (current) drug therapy; Z79.891 Long term (current) use of opiate analgesic
CPT/HCPCS: 72141; 96372; 99283; J1885

== ENCOUNTER → 2024-01-18 | Outpatient (CLI) | payer OTHER, MEDICARE ==
[~2024-01-18] MED LIST changes: +CENT1TAB2 PO; +EZET10TA21 PO; +MEDR4PAK PO; +METF500T13 PO; +NESI12.5 PO; +PANT40TA29 PO; -ROSU40TA4 PO; +ROSU40TA63 PO; +VALI2TAB PO
== END ==
LOC: M EKG 09:01
PROVIDERS: ATTEND Orthopaedic Surgery
DX: Z01.812 Encounter for preprocedural laboratory examination (principal)

== ENCOUNTER → 2024-03-20 | Outpatient (CLI) | payer MEDICARE, OTHER ==
[~2024-03-20] MED LIST changes: +ISOVUE-370 76% 100ML VIAL As Ordered ONE; -ROSU40TA63 PO; +ROSU40TA81 PO
== END ==
LOC: M RAD 07:49
PROVIDERS: ATTEND Dermatology
DX: Z85.89 Personal history of malignant neoplasm of other organs and systems (principal)
CPT/HCPCS: 70470; 70491; Q9967

== ENCOUNTER → 2024-08-27 | Outpatient (CLI) | payer OTHER, MEDICARE ==
[~2024-08-27] MED LIST changes: +BUDE180A2 INH; -BUDE180INH INH; -ISOVUE-370 76% 100ML VIAL As Ordered ONE
[2024-08-27 08:35] LABS: BLOOD UREA NITROGEN 17 MG/DL (9-23); CALCIUM LEVEL 8.7 MG/DL (8.3-10.6); CARBON DIOXIDE LEVEL 31 MMOL/L (20-31); CHLORIDE LEVEL 106 MMOL/L (98-107); CREATININE FOR GFR 0.84 MG/DL (0.70-1.30); GLOMERULAR FILTRATION RATE > 60.0 (>42); GLUCOSE, FASTING 114 MG/DL (74-106); POTASSIUM SERUM 3.8 MMOL/L (3.5-5.1); SODIUM LEVEL 145 MMOL/L (136-145)
== END ==
LOC: M LAB 07:19
PROVIDERS: ATTEND Nurse Practitioner Family
DX: N28.1 Cyst of kidney, acquired (principal)

== ENCOUNTER → 2024-09-03 | Outpatient (CLI) | payer OTHER ==
[~2024-09-03] MED LIST changes: +ISOVUE-370 76% 100ML VIAL As Ordered ONE
== END ==
LOC: M RAD 10:34
PROVIDERS: ATTEND Nurse Practitioner Family
DX: N28.1 Cyst of kidney, acquired (principal); K76.0 Fatty (change of) liver, not elsewhere classified
CPT/HCPCS: 74170; Q9967